=== PATIENT | male | born 1980 ===

== ENCOUNTER 2018-08-30 09:19 | Emergency (ER) | payer OTHER ==
[2018-08-30 09:37] VITALS: RESP 20; TEMP 98.3; O2SAT 97
[2018-08-30 09:41] VITALS: BMI 29.2
[2018-08-30] MEDS ORDERED: Aspirin 325 mg EC Tablets PO STA (09:44)
[2018-08-30] MEDS ORDERED: Aspirin 325 mg EC Tablets PO ONE (10:02)
[2018-08-30 10:04] LABS: BASO # 0.1 K/uL (0.0-0.2); BASO % 0.7 % (0.0-2.0); EOS # 0.5 K/uL (0.0-0.7); EOS % 7.5 % (0.0-4.0); HEMOGLOBIN 14.8 g/dL (12.0-18.0); LYMPH # 1.6 K/uL (1.0-4.3); LYMPH % 22.6 % (20.0-40.0); MEAN CORPUSCULAR HEMOGLOBIN 29.9 pg (27.0-31.0); MEAN CORPUSCULAR HGB CONC 33.7 g/dL (33.0-37.0); MEAN PLATELET VOLUME 7.9 fL (7.2-11.7); MONO # 0.5 K/uL (0.0-0.8); MONO % 6.9 % (0.0-10.0); NEUT # 4.5 K/uL (1.8-7.0); NEUT % 62.3 % (50.0-75.0); NRBC % 0.2 % (0.0-2.0); RBC 4.94 Mil/uL (4.40-5.90); RED CELL DISTRIBUTION WIDTH 13.7 % (11.5-14.5); WHITE BLOOD COUNT 7.2 K/uL (4.8-10.8)
[2018-08-30 10:09] LABS: MEAN CELL VOLUME 88.7 fL (80.0-94.0)
[2018-08-30 10:22] LABS: ALB/GLOB RATIO 1.3 (1.0-2.1); ALBUMIN 4.5 g/dL (3.5-5.0); BLOOD UREA NITROGEN 13 mg/dL (9-20); CALCIUM 9.4 mg/dl (8.6-10.4); GFR NON-AFRICAN AMERICAN > 60
[2018-08-30 10:31] LABS: BARBITURATES, UR NEGATIVE (NEGATIVE); BENZODIAZEPINES, UR NEGATIVE (NEGATIVE); OPIATES, UR NEGATIVE (NEGATIVE); PHENCYCLIDINE, UR NEGATIVE (NEGATIVE)
--- NOTE | 2018-08-30 10:36 | C.PDOC ---
History Of Present Illness 38 y/o male,with no significant PMhx, presents to the ER complaining of left sided chest pain which has been present for the past 9 days. Patient states that the symptoms began after he did cocaine at a libertarian. Patient reports that he did not take any medications for the pain. He notes that he had some intermittent vomiting. Denies having dizziness,syncope, abdominal pain, leg pain, recent travel, and other drug use. Time Seen by Provider: 08/30/18 09:27 Chief Complaint (Nursing): Chest Pain History Per: Patient History/Exam Limitations: no limitations Onset/Duration Of Symptoms: Days Current Symptoms Are (Timing): Still Present Severity: Moderate Past Medical History Reviewed: Historical Data, Nursing Documentation, Vital Signs Vital Signs: Last Vital Signs Temp 98.3 F 08/30/18 09:36 Pulse 86 08/30/18 09:36 Resp 20 08/30/18 09:36 BP 132/88 08/30/18 09:36 Pulse Ox 97 08/30/18 09:36 - Medical History PMH: No Chronic Diseases Surgical History: No Surg Hx Family History: States: No Known Family Hx - Social History Hx Alcohol Use: Yes Hx Substance Use: Yes - Immunization History Hx Tetanus Toxoid Vaccination: No Hx Influenza Vaccination: No Hx Pneumococcal Vaccination: No Review Of Systems Except As Marked, All Systems Reviewed And Found Negative. Constitutional: Negative for: Fever, Chills Cardiovascular: Positive for: Chest Pain (left-sided chest pain) Respiratory: Negative for: Shortness of Breath Gastrointestinal: Positive for: Vomiting. Negative for: Abdominal Pain, Diarrhea Physical Exam - Physical Exam Appears: Non-toxic, No Acute Distress Skin: Normal Color, Warm, Dry Head: Atraumatic, Normacephalic Eye(s): bilateral: Normal Inspection Nose: Normal Oral Mucosa: Moist Neck: Supple Chest: Symmetrical, Tenderness (mild reproducible tenderness to left chest wall) Cardiovascular: Rhythm Regular Respiratory: Normal Breath Sounds, No Rales, No Rhonchi, No Wheezing Gastrointestinal/Abdominal: Normal Exam, Soft, No Tenderness, No Guarding, No Rebound Neurological/Psych: Oriented x3, Normal Speech ED Course And Treatment - Laboratory Results Result Diagrams: 08/30/18 09:59 08/30/18 09:59 Lab Results: Total Bilirubin 0.7 mg/dL (0.2-1.3) 08/30/18 09:59 Total Protein 8.0 g/dL (6.3-8.3) 08/30/18 09:59 Albumin 4.5 g/dL (3.5-5.0) 08/30/18 09:59 Globulin 3.4 gm/dL (2.2-3.9) 08/30/18 09:59 Albumin/Globulin Ratio 1.3 (1.0-2.1) 08/30/18 09:59 ECG: Interpreted By Me, Viewed By Me ECG Rhythm: Sinus Rhythm Interpretation Of ECG: NSR with LVH, normal intervals, normal axises, and no ST elevations Rate From EC O2 Sat by Pulse Oximetry: 97 (RA) Pulse Ox Interpretation: Normal - Other Rad CXR X-Ray: Viewed By Me, Read By Radiologist Interpretation: HISTORY: chest pain. COMPARISON: No prior. TECHNIQUE: Chest PA and lateral. FINDINGS: Examination limited by habitus. LUNGS: No focal consolidation. Please note that chest x-ray has limited sensitivity for the detection of pulmonary masses. PLEURA: No significant pleural effusion identified. No definite pneumothorax . CARDIOVASCULAR: The cardiomediastinal silhouette appears within normal limits of size. No atherosclerotic calcification present. OSSEOUS STRUCTURES: No acute osseous abnormality identified. VISUALIZED UPPER ABDOMEN: Unremarkable. OTHER FINDINGS: None. IMPRESSION: No focal consolidation. Medical Decision Making Medical Decision Making: Plan: --Labs --ECG --CXR --Aspirin PO Updates: 10:45 On re-evaluation, patient feels better. Labs, cxr and UDS are negative, patient is chest pain free. Plan d/c home to f/u w/pcp. Disposition Counseled Patient/Family Regarding: Studies Performed, Diagnosis, Need For Foll owup - Disposition Referrals: [facility] [Outside] [facility] [Outside] Disposition: HOME/ ROUTINE Disposition Time: 10:49 Condition: IMPROVED Instructions: Chest Pain (DC), Costochondritis (DC) Forms: [facility] (Kiswahili), Gen Discharge Inst English, [facility] (English), General Discharge Instructions - POA Present On Arrival: None - Clinical Impression Clinical Impression: Chest discomfort, Chest wall pain - Scribe Statement The provider has reviewed the documentation as recorded by the [facility] Provider Attestation: All medical record entries made by the Scribe were at my direction and personally dictated by me. I have reviewed the chart and agree that the record accurately reflects my personal performance of the history, physical exam, medical decision making, and the department course for this patient. I have also personally directed, reviewed, and agree with the discharge instructions and disposition.
[2018-08-30 10:39] LABS: ALT/SGPT 62 U/L (21-72); AST/SGOT 80 U/L (17-59)
[2018-08-30 10:48] VITALS: BP 124/83; PULSE 76
--- NOTE | 2018-09-03 21:41 | CARD ---
APPROVED REPORT Date of service: 08/30/2018 EKG Measurement Heart [id number] <Conclusion> Normal sinus rhythm Minimal voltage criteria for LVH, may be normal variant Borderline ECG
== END 2018-08-30 10:57 | disposition home or self-care (01) ==
LOC: C.ER 09:19
DX: R07.89 Other chest pain (principal)